=== PATIENT | male | born 1965 | race Caucasian/White ===

== ENCOUNTER 2017-02-04 15:25 | Emergency (ER) | payer BC ==
[2017-02-04 17:05] LABS: Hematocrit 46 % (42-52); Hemoglobin 15.6 g/dl (14.0-18.0); Mean Corpuscular HGB Conc 34 g/dl (31-36); Mean Corpuscular Hemoglobin 31 pg (27-31); Mean Corpuscular Volume 91 fL (80-94); Mean Platelet Volume 8 um3 (7.4-10.4); Red Blood Count 5.08 10^6/ul (4.0-5.4); Red Cell Distribution Width 13 % (10.5-15); White Blood Count 9.8 10^3/ul (3.5-10.8)
[2017-02-04 17:21] LABS: Albumin 4.3 g/dL (3.2-5.2); BUN/Creatinine Ratio 12.8 (8-20); Calcium 9.6 mg/dL (8.6-10.3); EGFR Non-African American 83.9 (>60); Globulin 2.9 g/dL (2-4); Potassium 4.3 mmol/L (3.5-5.0); Total Bilirubin 0.5 mg/dL (0.2-1.0); Total Protein 7.2 g/dL (6.4-8.9)
[2017-02-04] MEDS ORDERED: ceFAZolin 1 GM VIAL(*) 1 GM in NS 0.9% 50 ML* 50 ML IVPB ONE (17:32)
[2017-02-04] MEDS ORDERED: ceFAZolin 1 GM ADVAN(*) 1 GM in NS 0.9% 50 ML* 50 ML IVPB ONE (18:00)
[2017-02-04] MEDS ORDERED: Levofloxacin TAB* 250 MG PO ONE (18:44)
[2017-02-04] MEDS ORDERED: DOXYcycline CAP(*) 100 MG PO ONE (18:44)
--- NOTE | 2017-02-04 18:56 | ED ---
Sridevi Frey SooYoung, scribed for Mohan Ahuja MD on 02/04/17 at 1633 . Upper Extremity Pain - HPI Summary HPI Summary: A 51 y/o M presents to ED with c/o RUE pain onset two days ago. He notes that three days ago he cleaned out his salt water fish tank and had two healings abrasions on his arm at that time. Pt takes [place], Symbicort. Pt is scheduled for hernia surgery in 5 days. Associated sx: last two digits on R hand have begun to tingle in the past two hours while being at ED. - History of Current Complaint Chief Complaint: EDExtremityUpper Stated Complaint: INFLAMMATION ON RT ARM Time Seen by Provider: 02/04/17 15:48 Hx Obtained From: Patient Onset/Duration: Started Days Ago, Still Present Timing: Constant Severity Initially: Moderate Severity Currently: Moderate Pain Location: Elbow - RUE Associated Signs & Symptoms: Positive: Swelling, Redness, Numbness/Tingling - in R hand, last two digits, Other - RUE pain - Allergies/Home Medications Allergies/Adverse Reactions: Allergies Allergy/AdvReac Type Severity Reaction Status Date / Time Tree Nuts Allergy Hives/Diff. Verified 07/04/14 09:41 Breathing/I tching PMH/Surg Hx/FS Hx/Imm Hx Previously Healthy: Yes Endocrine/Hematology History: Denies: Hx Diabetes Cardiovascular History: Denies: Hx Hypertension, Hx Pacemaker/ICD Respiratory History: Reports: Hx Asthma History: Denies: Hx Dialysis, Hx Renal Disease Sensory History: Denies: Hx Hearing Aid Psychiatric History: Denies: Hx Eating Disorder, Hx Panic Disorder, Hx of Violent Episodes Against Others - Surgical History Surgery Procedure, Year, and Place: BILAT KNEE SURG - 15YO Hx Anesthesia Reactions: No Infectious Disease History: No Infectious Disease History: Denies: Traveled Outside the [place] in Last 30 Days - Family History Known Family History: Positive: Other - depression, fraternal GM - Social History Occupation: Employed Full-time Lives: With Family Alcohol Use: Occasionally Hx Substance Use: No Substance Use Type: Reports: None Hx Tobacco Use: No Smoking Status (MU): Never Smoked Tobacco Review of Systems Negative: Fever Positive: Edema - RUE near elbow, Other - pain RUE near elbow; tingling in R hand last two digits Skin: Other - erythema RUE All Other Systems Reviewed And Are Negative: Yes Physical Exam - Summary Physical Exam Summary: The patient is well-nourished in no acute distress and in no acute pain. The skin is warm and dry and skin color reflects adequate perfusion. HEENT: The head is normocephalic and atraumatic. The pupils are equal and reactive. The conjunctivae are clear and without drainage. Nares are patent and without drainage. Mouth reveals moist mucous membranes and the throat is without erythema and exudate. The external ears are intact. The ear canals are patent and without drainage. The tympanic membranes are intact. Neck is supple with full range of motion and non-tender. There are no carotid bruits. There is no neck vein distension. Respiratory: Chest is non-tender. Lungs are clear to auscultation and breath sounds are symmetrical and equal. Cardiovascular: Hear is regular rate and rhythm. There is no murmur or rub auscultated. There is no peripheral edema and pulses are symmetrical and equal. Abdomen: The abdomen is soft and non-tender. There are normal bowel sounds heard in all four quadrants and there is no organomegaly palpated. Musculoskeletal: There is no back pain noted. Extremities are non-tender with full range of motion, except the R elbow has mild swelling, mild tenderness and erythema tracking distally. Pt has two healing abrasions in that area. There is good capillary refill. There is no peripheral edema or calf tenderness elicited. Neurological: Patient is alert and oriented to person, place and time. The patient has symmetrical motor strength in all four extremities. Cranial nerves are grossly intact. Deep tendon reflexes are symmetrical and equal in all four extremities. Psychiatric: The patient has an appropriate affect and does not exhibit any anxiety or depression. Triage Information Reviewed: Yes Vital Signs On Initial Exam: Initial Vitals Temp Pulse Resp BP Pulse Ox 99.4 F 103 16 149/98 100 02/04/17 15:27 02/04/17 15:27 02/04/17 15:27 02/04/17 15:27 02/04/17 15:27 Vital Signs Reviewed: Yes Diagnostics - Vital Signs Vital Signs Temp Pulse Resp BP Pulse Ox 02/04/17 15:27 99.4 F 103 16 149/98 100 - Laboratory Lab Results: Lab Results 11/12/17 11/12/17 11/12/17 Range/Units 16:42 16:42 16:42 WBC 9.8 (3.5-10.8) 10^3/ul RBC 5.08 (4.0-5.4) 10^6/ul Hgb 15.6 (14.0-18.0) g/dl Hct 46 (42-52) % MCV 91 (80-94) fL MCH 31 (27-31) pg MCHC 34 (31-36) g/dl RDW 13 (10.5-15) % Plt Count 236 (150-450) 10^3/ul MPV 8 (7.4-10.4) um3 Neut % (Auto) 71.8 (38-83) % Lymph % (Auto) 14.5 L (25-47) % Archuleta % (Auto) 8.4 (1-9) % Eos % (Auto) 4.6 (0-6) % Baso % (Auto) 0.7 (0-2) % Absolute Neuts (auto) 7.1 (1.5-7.7) 10^3/ul Absolute Lymphs (auto) 1.4 (1.0-4.8) 10^3/ul Absolute Monos (auto) 0.8 (0-0.8) 10^3/ul Absolute Eos (auto) 0.5 (0-0.6) 10^3/ul Absolute Basos (auto) 0.1 (0-0.2) 10^3/ul Absolute Nucleated RBC 0 10^3/ul Nucleated RBC % 0 INR (Anticoag Therapy) 0.91 (0.89-1.11) Sodium 137 (133-145) mmol/L Potassium 4.3 (3.5-5.0) mmol/L Chloride 102 (101-111) mmol/L Carbon Dioxide 31 (22-32) mmol/L Anion Gap 4 (2-11) mmol/L BUN 12 (6-24) mg/dL Creatinine 0.94 (0.67-1.17) mg/dL Est GFR ( Amer) 108.0 (>60) Est GFR (Non-Af Amer) 83.9 (>60) BUN/Creatinine Ratio 12.8 (8-20) Glucose 77 (70-100) mg/dL Lactic Acid (0.5-2.0) mmol/L Calcium 9.6 (8.6-10.3) mg/dL Total Bilirubin 0.50 (0.2-1.0) mg/dL AST 17 (13-39) U/L ALT 23 (7-52) U/L Alkaline Phosphatase 73 (34-104) U/L Troponin I 0.00 (<0.04) ng/mL Total Protein 7.2 (6.4-8.9) g/dL Albumin 4.3 (3.2-5.2) g/dL Globulin 2.9 (2-4) g/dL Albumin/Globulin Ratio 1.5 (1-3) 02/04/17 Range/Units 16:42 WBC (3.5-10.8) 10^3/ul RBC (4.0-5.4) 10^6/ul Hgb (14.0-18.0) g/dl Hct (42-52) % MCV (80-94) fL MCH (27-31) pg MCHC (31-36) g/dl RDW (10.5-15) % Plt Count (150-450) 10^3/ul MPV (7.4-10.4) um3 Neut % (Auto) (38-83) % Lymph % (Auto) (25-47) % Archule[place] % (Auto) (1-9) % Eos % (Auto) (0-6) % Baso % (Auto) (0-2) % Absolute Neuts (auto) (1.5-7.7) 10^3/ul Absolute Lymphs (auto) (1.0-4.8) 10^3/ul Absolute Monos (auto) (0-0.8) 10^3/ul Absolute Eos (auto) (0-0.6) 10^3/ul Absolute Basos (auto) (0-0.2) 10^3/ul Absolute Nucleated RBC 10^3/ul Nucleated RBC % INR (Anticoag Therapy) (0.89-1.11) Sodium (133-145) mmol/L Potassium (3.5-5.0) mmol/L Chloride (101-111) mmol/L Carbon Dioxide (22-32) mmol/L Anion Gap (2-11) mmol/L BUN (6-24) mg/dL Creatinine (0.67-1.17) mg/dL Est GFR ( Amer) (>60) Est GFR (Non-Af Amer) (>60) BUN/Creatinine Ratio (8-20) Glucose (70-100) mg/dL Lactic Acid 1.2 (0.5-2.0) mmol/L Calcium (8.6-10.3) mg/dL Total Bilirubin (0.2-1.0) mg/dL AST (13-39) U/L ALT (7-52) U/L Alkaline Phosphatase (34-104) U/L Troponin I (<0.04) ng/mL Total Protein (6.4-8.9) g/dL Albumin (3.2-5.2) g/dL Globulin (2-4) g/dL Albumin/Globulin Ratio (1-3) Result Diagrams: 02/04/17 16:42 02/04/17 16:42 Lab Statement: Any lab studies that have been ordered have been reviewed, and results considered in the medical decision making process. Re-Evaluation - Re-Evaluation 1 Re-Evaluation Time: 18:46 Change: Unchanged Comment: Discussing results with pt and family. Course/Dx - Course Course Of Treatment: Mr. Bravo came in with a cellulitis that started two days ago after cleaning a salt water aquarium with a couple of healing abrasions on his arm. I am worried that the water was brackish. He was given a dose of IV cefazolin here while labs were checked (and WNL), I am going to D/ C him on three different antibiotics and he should F/U in two days for a recheck. He may need IV antibiotics. There is no evidence for fasciitis or abscess. - Diagnoses Provider Diagnoses: Cellulitis Discharge - Discharge Plan Condition: Stable Disposition: HOME Prescriptions: Cephalexin CAP* [Keflex CAP*] 500 mg PO QID #40 cap DOXYcycline CAP(*) [DOXYcycline 100MG CAP(*)] 100 mg PO BID #20 cap Levofloxacin TAB* [Levaquin TAB*] 750 mg PO DAILY #10 tab Patient Education Materials: Cephalexin (By mouth), Doxycycline (By mouth), Levofloxacin (By mouth), Cellulitis (ED) Referrals: No Primary Care Phys,NOPCP [Primary Care Provider] - Additional Instructions: Follow up with your primary care provider at [place] in 2 days. Return to the ED if you experience new or worsening symptoms. The documentation as recorded by the Sridevi christine SooYoung accurately reflects the service I personally performed and the decisions made by me, Mohan Ahuja MD.
[2017-02-04 19:22] VITALS: BP 124/78
== END 2017-02-04 19:20 | disposition home or self-care (01) ==
LOC: ED 15:25
DX: L03.90 Cellulitis, unspecified (principal); R60.9 Edema, unspecified
CPT/HCPCS: 36415; 80053; 83605; 84484; 85025; 85610; 87040; 99284; A9270-GY; J0690

== ENCOUNTER 2017-02-23 10:04 | Day surgery (SDC) | payer BC ==
--- NOTE | 2017-02-02 17:40 | HP ---
HISTORY AND PHYSICAL: DATE OF SURGERY: 02/09/17 ATTENDING PHYSICIAN: Estelita Clarke MD * (DICTATED BY CARLOS DANG) CHIEF COMPLAINT: Umbilical hernia. HISTORY OF PRESENT ILLNESS: Mr. Bravo is a pleasant 51-year-old gentleman who was seen in the [facility] office earlier this month to discuss umbilical hernia repair. The patient notes that he had an umbilical bulge an innie and outie for few years now. He noticed that the bulge has gotten slightly bigger in the last couple of years. He noticed about a month ago increased burning sensation to the umbilical area when he was lifting heavy things around the house. He is able to push his hernia bag inside every time and denies any associated nausea, vomiting, or changes in the bowel habits. Couple of weeks ago, he was lifting a heavy bag of sand and he noticed that hernia was bulging again with increased burning sensation and pain, but he was still able to reduce the hernia manually. Given his ongoing symptoms and increased in relative size of his hernia, he decided to be seen in the office to discuss hernia repair. The patient was seen by Dr. Clarke a week ago and was examined and was found to have moderate sized umbilical hernia, for which he will be scheduled tentatively to do an elective repair of umbilical hernia. Since his last office visit, he denies any significant changes or other complaints. He denies any fever, chills, changes in the bowel habits, nausea, vomiting, or any changes in the size of the umbilical hernia. PAST MEDICAL HISTORY: Significant for medication controlled bipolar disorder as well as exercise-induced asthma. He denies any history of heart, liver, or kidney disease. PAST SURGICAL HISTORY: Significant for left knee arthroscopy when he was a teenager due to what appears to be a meniscal tear. He also had a small superficial mole excised from abdominal wall. CURRENT MEDICATIONS: His medications at home include: 1. [place] carbonate at 1500 mg 1 tablet by mouth once daily. 2. Symbicort inhaler 160/4.5 one puff b.i.d. ALLERGIES: ENVIRONMENTAL ALLERGIES and TREE NUTS. He denies any known drug allergies. FAMILY HISTORY: Noncontributory. SOCIAL HISTORY: The patient is a teacher in [employer]. He lives with his girlfriend. He has never smoked and he consumes alcohol occasionally. He exercises frequently more walking and jogging. REVIEW OF SYSTEMS: See HPI, otherwise negative. He denies any headache, dizziness, blurred vision, or double vision. No chest pain, palpitations, or shortness of breath. No sore throat, wheezing, orthopnea, or dyspnea at rest. He denies any back pain, flank pain, dysuria, hematuria, or urinary frequency. He admits to an umbilical hernia that he had for many years that gotten more symptomatic lately, but denies any changes in the bowel habits, nausea, vomiting. No fever, chills, night sweats, or recent weight loss. PHYSICAL EXAMINATION GENERAL: He is a pleasant, healthy-appearing, middle-aged gentleman, in no acute distress or discomfort at the time of this visit. VITAL SIGNS: His vitals revealed blood pressure of 120/80, pulse of 72, respiration of 18, temperature of 98.7. He is 6 feet 1 inch, 240 pounds with BMI of 32. HEENT: Head is normocephalic, atraumatic. Sclerae anicteric. PERRLA. EOMs intact. Oropharynx is pink and moist with no exudate. NECK: Supple. Trachea midline. No cervical adenopathy, thyromegaly, or JVD. LUNGS: Clear to auscultation bilaterally. HEART: Regular rate and rhythm. Normal S1 and S2 without rubs, murmurs, or gallops. BACK: With normal curvature. No CVA tenderness. BREAST EXAM: Deferred at this time. ABDOMEN: Soft, obese, nontender, and nondistended. There is a moderate sized umbilical hernia noted with the patient supine and again upon standing up. The defect measures approximately 1 to 2 cm with slight amount of probable incarcerated omentum that was easily reducible upon palpation. There is very minimal tenderness on palpation of the hernia. No other hernias or masses were noted. No hepatosplenomegaly. EXTREMITIES: Without cyanosis, clubbing, or edema. RECTAL EXAM: Deferred at this time. NEUROLOGIC: Grossly intact. IMPRESSION: A 51-year-old gentleman with longstanding history of umbilical hernia that seemed to be more symptomatic in the last few weeks. PLAN: Mr. Bravo is scheduled for an open umbilical hernia repair by Dr. Clarke on 02/09/17. We went on and discussed with him the rationale, indications, risks, and benefits of the surgery. Risks include, but not limited to infection, bleeding, or injury to adjacent structures. He appears to understand and he wishes to proceed as outlined. We will follow him up one week postoperatively. CARLOS DANG [id number]/[facility] #: [id number] ALBERTA
[~2017-02-23 10:04] MED LIST: Buffered Lidocaine 0.9% SYRIN* 5 ML/SYR SYRINGE INTRADERM ONE; DiMENhydriNATE IV* 50 MG/ML VIAL IV PUSH PRN; Famotidine IV* 10 MG/ML 2 ML (20 mg) IV ONE; Morphine INJ* 2 MG/ML 1 ML CARPUJECT IV PRN; Ondansetron INJ* 2 MG/ML VIAL IV PRN; PROCHLORPERAZINE INJ 5 MG/ML 2 ML VIAL IV PRN; Scopolamine 1.5 mg* PATCH TRANSDERM PRN; fentaNYL* 50 MCG/ML 2 ML VIAL (100 MCG VIAL) IV PRN; oxyCODONE/Acetamin 5/325 MG* TAB PO PRN
[2017-02-23] MEDS ORDERED: Famotidine IV* 10 MG/ML 2 ML (20 mg) ONE (10:12)
[2017-02-23] MEDS ORDERED: Buffered Lidocaine 0.9% SYRIN* 5 ML/SYR SYRINGE ONE (10:12)
[2017-02-23] MEDS ORDERED: ceFAZolin 2 GM PREMIX (*) 2 GM/50 ML BAG IVPB ONE (10:12)
[2017-02-23] MEDS ORDERED: Midazolam* 1 MG/ML 10 ML VIAL (10 MG) ONE (10:27)
[2017-02-23] MEDS ORDERED: KETAMINE HCL* 50 MG/ML 10 ML VIAL ONE (10:27)
[2017-02-23] MEDS ORDERED: fentaNYL* 50 MCG/ML 2 ML VIAL (100 MCG VIAL) ONE (10:27)
[2017-02-23] MEDS ORDERED: Lidocaine 1% MPF wEPI 200,000* 30 ML SDV ONE (11:23)
[2017-02-23] MEDS ORDERED: Bupivacaine 0.5% SDV PF* 30 ML VIAL ONE (11:23)
[2017-02-23] MEDS ORDERED: Lidocaine 1% INJ* 10 MG/ML 30 ML SDV ONE (11:23)
[2017-02-23] MEDS ORDERED: Labetalol IV* 5 MG/ML 20 ML VIAL ONE (12:14)
[2017-02-23] MEDS ORDERED: oxyCODONE/Acetamin 5/325 MG* TAB PO PRN (12:34)
[2017-02-23] MEDS ORDERED: oxyCODONE/Acetamin 5/325 MG* TAB ONE (12:48)
[2017-02-23 13:00] VITALS: BP 142/95
[2017-02-23] MEDS ORDERED: Propofol* 10 MG/ML 20 ML BTL IV PUSH ONE (13:25)
[2017-02-23] MEDS ORDERED: Lidocaine 2% PF * 5 ML VIAL ONE (13:25)
--- NOTE | 2017-02-24 06:59 | OP ---
CC: [facility] OPERATIVE REPORT: DATE OF OPERATION: 02/23/17 DATE OF : 61 SURGEON: Estelita Clarke MD VIDEO CAMERA OPERATOR: CARLOS Alvarado PRE-OP DIAGNOSIS: Umbilical hernia. POST-OP DIAGNOSIS: Umbilical hernia. OPERATIVE PROCEDURE: Open repair of umbilical hernia. INDICATIONS: Mr. Bravo is a 51-year-old male, who presented to the office with symptomatic umbilic al hernia prompting the plan for surgical intervention. DESCRIPTION OF PROCEDURE: He was brought to the operating room, placed on the OR table in the supine position and given IV sedation. The abdomen was then prepped and draped in the usual sterile fashio n. After infiltrating with local anesthetic, a curvilinear infraumbilical incision was made and subc utaneous tissue was divided bluntly down to the level of the fascia. The umbilical stalk was then en circled with Alicia clamp and then Cole drain and then the umbilical stalk was divided from the her comfort contents. The hernia was reduced and the edges of the defect were identified. These were graspe d at either side with the Sylvia clamp and then closure was accomplished, this was done with #1 Ethib ond interrupted stitches and once it appeared that the closure was adequate, the umbilicus was tacked down to the fascia using 2-0 Polysorb, subcutaneous tissues was approximated with 2-0 Polysorb stitc hes, and then the skin was closed with 4-0 Prolene in the subcuticular fashion. Steri-Strips and dry sterile dressing were applied. All sponge and instrument counts were correct. The patient tolerate d the procedure well and was transferred to Recovery in a stable condition. [id number]/[facility] #: [id number]
[2017-02-26] MEDS ORDERED: Scopolamine PATCH Remove* 1 NOTE MISC PATCH OFF ONE (06:50)
== END 2017-02-23 13:49 | disposition home or self-care (01) ==
LOC: OR 10:04
PROVIDERS: ATTEND Surgery
DX: K42.9 Umbilical hernia without obstruction or gangrene (principal); F31.9 Bipolar disorder, unspecified; Z79.899 Other long term (current) drug therapy
CPT/HCPCS: A9270-GY; J0690; J2001; J2250; J2704; J3010

== ENCOUNTER → 2018-04-03 08:24 | Day surgery (SDC) | payer BC ==
[~2018-04-03 08:24] MED LIST changes: +Acetaminophen TAB* 325 MG ONE; +Acetaminophen TAB* 325 MG PO ONE; +Bupivacaine 0.25% W/EPI* 10 ML SDV ONE; +Dexamethasone IV* 4 MG/ML 1 ML (4 MG) ONE; -Famotidine IV* 10 MG/ML 2 ML (20 mg) IV ONE; +Famotidine IV* 10 MG/ML 2 ML (20 mg) ONE; +Gabapentin CAP(*) 300 MG ONE; +Gabapentin CAP(*) 300 MG PO ONE; +HYDROcodone/ACETAMIN 5-325 MG* 1 TAB ONE; +HYDROcodone/ACETAMIN 5-325 MG* 1 TAB PO PRN; +Ketorolac INJ* 30 MG/ML 1 ML VIAL ONE; +Lactated Ringers 1000 ML Bag* 1,000 ML IV SCH; +Midazolam* 1 MG/ML 2 ML VIAL (2 MG) ONE; -Morphine INJ* 2 MG/ML 1 ML CARPUJECT IV PRN; +Naloxone* 0.4 MG/ML 1 ML VIAL IV PRN; +Propofol* 10 MG/ML 20 ML BTL ONE; +Rocuronium* 10 MG/ML VIAL ONE; -Scopolamine 1.5 mg* PATCH TRANSDERM PRN; +ceFAZolin 2 GM PREMIX in ORs 2 GM/50 ML BAG IVPB ONE; +diPHENhydraMINE IV* 50 MG/ML 1 ml VIAL (BENADRYL) IV PRN; +fentaNYL* 50 MCG/ML 2 ML VIAL (100 MCG VIAL) ONE; -oxyCODONE/Acetamin 5/325 MG* TAB PO PRN
[2018-04-03 14:26] VITALS: BP 143/91
--- NOTE | 2018-04-04 22:31 | OP ---
CC: Primary care doctor... DATE OF OPERATION: 04/03/18 - [facility] DATE OF : 61 SURGEON: Ruperto Smith MD UPPER CUTTER OUT: CARLOS Sinha ANESTHESIOLOGIST: Dr. Wray. ANESTHESIA: General. PRE-OP DIAGNOSIS: Left inguinal hernia. POST-OP DIAGNOSIS: Left inguinal hernia. OPERATIVE PROCEDURE: Laparoscopic left inguinal hernia repair with mesh. ESTIMATED BLOOD LOSS: Less than 20 cc. FLUIDS: 700 cc. SPECIMEN: None. DESCRIPTION OF PROCEDURE: The patient was identified in the preoperative area. I discussed the case with him and consent was signed. He was marked in the appropriate fashion after clipping of the hair. He was then brought to the operating room, placed on the operating room table in a supine position. Preoperative antibiotics were given. Sequential devices were placed on bilateral lower extremities and general anesthesia was induced. The patient's lower abdomen and left groin were prepped and draped in the standard surgical fashion. A time- out was performed. An infraumbilical incision was made through the previous incision. This was deepened down to the anterior fascia on the left side, which was then incised and entry into the preperitoneal plane was made. Blunt dissection was made with the surgeon's finger right down to the pubis. We then placed a 12 mm trocar into the site and allowed the preperitoneal plane to insufflate to pressure of 12 mmHg. The patient tolerated the insufflation well. Camera dissection was then performed bluntly down to the pubic symphysis. Additional trocars were then placed in the following position, two 5 mm in the lower midline. Attention was turned towards the midline. This was cleared off the loose areolar tissue. We extended this dissection to the right side clearing off Skyler's ligament at this side. Next, we turned our attention to the left side. Skyler's ligament was cleared off at this side and then we identified the epigastric vessels and maintained these anteriorly. The space of Bogros was opened laterally. Once we cleared this off, we could see a hernia sac indirect, extending into the inguinal canal. This was dissected both bluntly and sharply off the spermatic structures. Until we slowly identified, we did not violate the structure. It was somewhat long and I decided to place a 2-0 Vicryl Endoloop at it. We cinched this down and then cut the sac, brought it out through the trocar but it was not sent for specimen. Review of the direct space required additional dissection, but showed no evidence of a direct hernia. The myopectineal orifice was cleared off and at this point we placed a medium sized 3Dmax mesh for coverage. This was tacked at Skyler's ligament and also tacked laterally with the absorbable tacker, taking care not to place the tack too posteriorly. The mesh laid without wrinkling. We then allowed the preperitoneal plane to collapse. Trocars were removed under direct vision. Umbilical port site was closed in the fascial layer with an 0 Vicryl suture in a [id number] fashion and all 3 skin incisions were reapproximated with 4-0 Monocryl and subcuticular sutures followed by Steri-Strips and sterile dressing. The patient tolerated the procedure well, was transferred to the PACU in stable condition. [id number]/[facility] #: [id number] MTDD
== END | disposition home or self-care (01) ==
LOC: OR 08:24
PROVIDERS: ATTEND Surgery
DX: K40.90 Unilateral inguinal hernia, without obstruction or gangrene, not specified as recurrent (principal); R00.2 Palpitations; F41.8 Other specified anxiety disorders; Z68.32 Body mass index [BMI] 32.0-32.9, adult
CPT/HCPCS: A9270-GY; C1781; J0690; J1100; J1885; J2250; J2704; J3010